=== PATIENT | female | born 1950 | race Caucasian/White ===

== ENCOUNTER 2016-05-07 09:02 | Observation (INO) ==
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
[2016-05-07 10:26] LABS: Basophils % 0.6 %; Eosinophils # 0.1 K/mcL (0.0-0.6); Eosinophils % 0.9 %; Hematocrit 38.7 % (35.3-44.9); Hemoglobin 13.1 g/dL (11.5-15.4); Immature Granulocytes % 0.3 % (0-4); Lymphocytes # 2.4 K/mcL (0.6-4.6); Lymphocytes % 37.1 %; Mean Corpuscular HGB Conc 33.9 g/dL (31.6-35.5); Mean Corpuscular Hemoglobin 30.1 pg (28.0-33.3); Mean Platelet Volume 10.1 fL (9.4-12.4); Monocytes # 1.1 K/mcL (0.0-1.3); Monocytes % 16.7 %; Neutrophils # 2.8 K/mcL (1.6-8.9); Platelet Count 426 K/mcL (140-400); Red Blood Count 4.35 M/mcL (3.82-4.97); Red Cell Distribution Width 18.4 % (11.5-14.5); Segmented Neutrophils % 44.4 %
[2016-05-07 10:35] LABS: INR 1.2; Prothrombin Time 12.8 Seconds (9.4-12.1)
[2016-05-07 10:55] LABS: Bilirubin,Urine Large (Negative); Blood,Urine Small (Negative); Clarity,Urine Clear (Clear); Color,Urine Yellow (Yellow); Glucose,Urine (UA) Normal (Normal); Ketones,Urine 40 mg/dL (Negative); Leukocyte Esterase,Urine Small (Negative); Nitrite,Urine Negative (Negative); PH,Urine 5.5 pH Units (5.0-8.0); Protein,Urine >=300 mg/dL (Neg-Trace); Specific Gravity,Urine >= 1.030 (1.010-1.025); Urobilinogen,Urine Normal (Normal)
[2016-05-07 10:58] LABS: BUN/Creatinine Ratio 21 (6-26); Blood Urea Nitrogen 22 mg/dL (7-20); Calcium 10.2 mg/dL (8.6-10.8); Carbon Dioxide 18 mEq/L (19-29); Chloride 101 mEq/L (98-109); Glucose 127 mg/dL (70-99); Osmolality,Calculated 293 (280-300); Potassium 3.9 mEq/L (3.5-4.5); Sodium 139 mEq/L (136-145); eGFR For African Americans > 60 (> 60); eGFR For Non-African Americans 52 (> 60)
[2016-05-07 11:00] LABS: Bacteria,Urine Many per hpf (None-Few); Hyaline Casts,Urine Few per lpf (None-Few); Mucus,Urine Few (Few); Squamous Epithelial Cell,Urine Few per lpf (None-Few); WBC,Urine 15-30 per hpf (0-3)
[2016-05-07] MEDS ORDERED: MetroNIDAZOLE 500 MG/100 ML 500 MG/100 ML BAG IVPB ONE ×2 (11:51→12:30)
[2016-05-07] MEDS ORDERED: CefTRIAXone 1,000 MG in D5% in Water (Mini-Bag+) 100 ML IVPB ONE ×2 (11:51→12:30)
[2016-05-07] MEDS ORDERED: 0.9 % Sodium Chloride 1,000 ML IVC SCH ×2 (12:00→12:30)
[2016-05-07] MEDS ORDERED: *HR* HYDROcodone/Acet 5/325 mg TABLET PO PRN (12:30)
[2016-05-07] MEDS ORDERED: GuaiFENesin Liq 200 MG/10 ML UDC PO PRN (12:30)
[2016-05-07] MEDS ORDERED: *HR* Dextrose 50 % in Water (Syg) 50 ML SYRINGE IVP PRN (12:30)
[2016-05-07] MEDS ORDERED: Naloxone 0.4 MG/ML INJ IVP PRN (12:30)
[2016-05-07] MEDS ORDERED: D5% in Water 1,000 ML IV PRN (12:30)
[2016-05-07] MEDS ORDERED: Dextrose Gel 15 GM PO PRN ×2 (12:30)
[2016-05-07] MEDS ORDERED: Ondansetron ODT 4 MG TAB.RAPDIS SL PRN (12:30)
[2016-05-07] MEDS ORDERED: ClonazePAM 0.5 MG TABLET PO STA (15:21)
[2016-05-07 17:12] LABS: Hemoglobin A1C 6.8 %
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
[2016-05-07] MEDS ORDERED: *HR* Digoxin 0.5 MG/2 ML AMPUL IVP ONE (18:01)
[2016-05-07] MEDS ORDERED: *HR* Propranolol 1 MG/ML VIAL IVP ONE ×2 (18:01→18:33)
[2016-05-07] MEDS: Topiramate 100 MG TABLET PO SCH (20:39)
[2016-05-07] MEDS: BuPROPion XL (24 HR) 150 MG TABLET PO SCH (20:39)
[2016-05-07] MEDS: ClonazePAM 0.5 MG TABLET PO SCH (20:39)
[2016-05-07] MEDS: *HR* Rivaroxaban 15 MG TABLET PO SCH (20:39)
[2016-05-07] MEDS: Doxycycline 100 MG CAPSULE PO SCH (20:39)
[2016-05-07] MEDS: 0.45 % Sodium Chloride w/KCl 20 MEQ/1,000 ML MLS IVC SCH (20:40)
[2016-05-07] MEDS: Insulin DETEMIR 100 UNIT/ML X5UNITS SQ SCH (20:45)
[2016-05-07] MEDS: Nystatin POWDER 30 GM BOTTLE TP SCH (22:34)
[2016-05-07] MEDS: Insulin LISPRO 300 UNITS/3 ML VIAL SQ SCH (23:12)
[2016-05-08] MEDS: Nystatin POWDER 30 GM BOTTLE TP SCH ×3 (00:13→17:10)
[2016-05-08] MEDS: 0.45 % Sodium Chloride w/KCl 20 MEQ/1,000 ML MLS IVC SCH (06:39)
[2016-05-08 09:11] LABS: Basophils # 0.1 K/mcL (0.0-0.2); Basophils % 0.9 %; Eosinophils # 0.2 K/mcL (0.0-0.6); Eosinophils % 4.4 %; Hematocrit 36.2 % (35.3-44.9); Hemoglobin 12.4 g/dL (11.5-15.4); Immature Granulocytes % 0.4 % (0-4); Mean Corpuscular HGB Conc 34.3 g/dL (31.6-35.5); Mean Corpuscular Hemoglobin 30.3 pg (28.0-33.3); Mean Corpuscular Volume 88.5 fL (83.0-100.0); Mean Platelet Volume 10.2 fL (9.4-12.4); Neutrophils # 2.1 K/mcL (1.6-8.9); Platelet Count 397 K/mcL (140-400); Red Blood Count 4.09 M/mcL (3.82-4.97); Red Cell Distribution Width 18.3 % (11.5-14.5); Segmented Neutrophils % 39.3 %
[2016-05-08] MEDS: Insulin LISPRO 300 UNITS/3 ML VIAL SQ SCH ×3 (09:51→17:10)
[2016-05-08] MEDS: Aspirin Enteric Coated 81 MG Tablet PO SCH (09:53)
[2016-05-08] MEDS: CefTRIAXone 1,000 MG in D5% in Water (Mini-Bag+) 100 ML IVPB SCH (09:53)
[2016-05-08] MEDS: Lisinopril 20 MG TABLET PO SCH (09:53)
[2016-05-08] MEDS: ClonazePAM 0.5 MG TABLET PO SCH (09:53)
[2016-05-08] MEDS: Doxycycline 100 MG CAPSULE PO SCH (09:53)
[2016-05-08 11:20] LABS: INR 1.4; Prothrombin Time 14.7 Seconds (9.4-12.1)
[2016-05-08 11:24] LABS: BUN/Creatinine Ratio 24 (6-26); Blood Urea Nitrogen 21 mg/dL (7-20); Calcium 9.3 mg/dL (8.6-10.8); Carbon Dioxide 22 mEq/L (19-29); Chloride 103 mEq/L (98-109); Glucose 136 mg/dL (70-99); Osmolality,Calculated 289 (280-300); Potassium 3.9 mEq/L (3.5-4.5); Sodium 137 mEq/L (136-145); eGFR For African Americans > 60 (> 60); eGFR For Non-African Americans > 60 (> 60)
--- NOTE | 2016-05-08 12:27 | Internal Med Progress Note ---
Date of Encounter: 05/08/16 Time of Encounter: 12:20 - Assessment and plan (1) Cellulitis Current Visit: Yes Status: Acute Assessment and plan: May 08. Continue doxycycline. Qualifiers: Site of cellulitis of extremity: lower extremity Laterality: left Qualified Code(s): L03.116 - Cellulitis of left lower limb (2) Atrial fibrillation Current Visit: Yes Status: Acute Assessment and plan: May 08. Now in NSR. Continue Lanoxin and Xarelto. Will add Toprol to help maintain NSR and improved blood pressure. Qualifiers: Atrial fibrillation type: unspecified Qualified Code(s): I48.91 - Unspecified atrial fibrillation (3) CKD (chronic kidney disease) stage 3, GFR 30-59 ml/min Current Visit: Yes Status: Chronic Assessment and plan: May 08. Her creatinine is decreased to 0.88 with estimated GFR now greater than 60. Continue present regimen. (4) Bipolar disorder Current Visit: Yes Status: Chronic Assessment and plan: May 08. Continue present antipsychotic medications. Consider referral to inpatient psychiatric unit. Qualifiers: Active/Remission status: remission status unspecified Qualified Code(s): F31.9 - Bipolar disorder, unspecified (5) Anxiety Current Visit: Yes Status: Chronic Assessment and plan: May 08. Continue present medications (6) Hypertension Current Visit: Yes Status: Chronic Assessment and plan: May 08. We will add Toprol and continue Zestril. She will remain off HCTZ. Qualifiers: Hypertension type: essential hypertension Qualified Code(s): I10 - Essential (primary) hypertension (7) DM type 2 (diabetes mellitus, type 2) Current Visit: Yes Status: Chronic Assessment and plan: May 08. Hemoglobin A1c was 6.8% on 05/07/2016. Continue Levemir and Accu- Cheks with SSI Qualifiers: Diabetes mellitus complication status: with kidney complications Diabetes mellitus complication detail: with chronic kidney disease Diabetes mellitus correction insulin use: with intermodal dispatcher use Chronic kidney disease stage: stage 3 (moderate) Qualified Code(s): E11.22 - Type 2 diabetes mellitus with diabetic chronic kidney disease; N18.3 - Chronic kidney disease, stage 3 ( moderate); Z79.4 - bed bug exterminator (current) use of insulin (8) Hypothyroidism Current Visit: Yes Status: Chronic Assessment and plan: May 08. TSH was normal at 1.407 on 05/07/2016. Continue Synthroid Qualifiers: Hypothyroidism type: unspecified Qualified Code(s): E03.9 - Hypothyroidism , unspecified (9) UTI (urinary tract infection) Current Visit: Yes Status: Acute Assessment and plan: May 08. Continue Rocephin and await urine culture report Qualifiers: Urinary tract infection type: acute cystitis Hematuria presence: with hematuria Qualified Code(s): N30.01 - Acute cystitis with hematuria - Subjective Interval history: May 08. She has no new complaints. She is rambling in conversation. - Constitutional Vitals: Temp Pulse Resp BP Pulse Ox 97.7 F 87 18 155/90 96 05/08/16 11:00 05/08/16 11:00 05/08/16 11:00 05/08/16 06:16 05/08/16 11:00 Exam: She appears in no acute distress. She has trace edema of her lower legs. There is decreased erythema of the left lower leg and left toes. Her heart is now regular sinus rhythm at rate approximately 98/m. She has tangential thoughts and is rambling in conversation. I reviewed her medications and lab results. Internal Medicine: Result - Labs CBC & Chem 7: 05/08/16 08:44 05/08/16 08:44 Labs: Short CBC 05/08/16 Range/Units 08:44 WBC 5.4 (4.3-11.1) K/mcL Hgb 12.4 (11.5-15.4) g/dL Hct 36.2 (35.3-44.9) % Plt Count 397 (140-400) K/mcL Neutrophils # 2.1 (1.6-8.9) K/mcL BMP 05/08/16 08:44 Sodium 137 Potassium 3.9 Chloride 103 Carbon Dioxide 22 BUN 21 H Creatinine 0.88 Glucose 136 H Calcium 9.3 - ABG Interpretation ABG results: PT/INR, D-dimer PT 14.7 Seconds (9.4-12.1) H 05/08/16 08:44 Consult Discharge Plan - Plan Referrals: Trey Camilo [Primary Care Provider] - 1 week
[2016-05-08] MEDS: Metoprolol XL (24 HR) Succ 50 MG TAB.ER.24H PO SCH (14:50)
--- NOTE | 2016-05-08 15:04 | Electrocardiograph Report ---
[facility] Test Date: 2016-05-07 Pat Name: Pooja Patrick Department: [id number] Room: [id number] Gender: F Ceramics Teacher: Santana : 1950 Requested By: Dexter Do Order Number: [id number] Mely MD: Randall Frank DO Measurements Intervals [place] Rate: 171 P: [place]: 0 QRS: 50 QRSD: 90 T: -81 QT: 264 QTc: 356 Interpretive Statements Probable atrial fibrillation with RVR Anterolateal and inferor ST-T changes due to rate and/or ischemia Electronically Signed On 05-08-16 14:03:53 EST by Randall Frank DO
[2016-05-08] MEDS: *HR* Rivaroxaban 15 MG TABLET PO SCH (17:00)
[2016-05-09] MEDS: Doxycycline 100 MG CAPSULE PO SCH ×3 (01:25→20:30)
[2016-05-09] MEDS: Nystatin POWDER 30 GM BOTTLE TP SCH ×4 (01:26→21:15)
[2016-05-09] MEDS: ClonazePAM 0.5 MG TABLET PO SCH ×3 (01:26→20:30)
[2016-05-09] MEDS: Insulin DETEMIR 100 UNIT/ML X5UNITS SQ SCH ×2 (01:26→20:29)
[2016-05-09] MEDS: BuPROPion XL (24 HR) 150 MG TABLET PO SCH ×2 (01:27→20:30)
[2016-05-09] MEDS: Topiramate 100 MG TABLET PO SCH ×2 (01:27→20:30)
[2016-05-09] MEDS: Insulin LISPRO 300 UNITS/3 ML VIAL SQ SCH ×2 (09:34→17:34)
[2016-05-09] MEDS: Lisinopril 20 MG TABLET PO SCH (09:36)
[2016-05-09] MEDS: Metoprolol XL (24 HR) Succ 50 MG TAB.ER.24H PO SCH (09:36)
[2016-05-09] MEDS: CefTRIAXone 1,000 MG in D5% in Water (Mini-Bag+) 100 ML IVPB SCH (09:37)
[2016-05-09] MEDS: Aspirin Enteric Coated 81 MG Tablet PO SCH (09:37)
--- NOTE | 2016-05-09 17:25 | Internal Med Progress Note ---
Date of Encounter: 05/09/16 Time of Encounter: 17:15 - Assessment and plan (1) Cellulitis Current Visit: Yes Status: Acute Assessment and plan: May 08. Continue doxycycline. Qualifiers: Site of cellulitis of extremity: lower extremity Laterality: left Qualified Code(s): L03.116 - Cellulitis of left lower limb (2) Atrial fibrillation Current Visit: Yes Status: Acute Assessment and plan: May 08. Now in NSR. Continue Lanoxin and Xarelto. Will add Toprol to help maintain NSR and improved blood pressure. May 09. Continue Toprol and Xarelto Qualifiers: Atrial fibrillation type: unspecified Qualified Code(s): I48.91 - Unspecified atrial fibrillation (3) CKD (chronic kidney disease) stage 3, GFR 30-59 ml/min Current Visit: Yes Status: Chronic Assessment and plan: May 08. Her creatinine is decreased to 0.88 with estimated GFR now greater than 60. Continue present regimen. May 09. Will recheck labs in a.m. (4) Bipolar disorder Current Visit: Yes Status: Chronic Assessment and plan: May 08. Continue present antipsychotic medications. Consider referral to inpatient psychiatric unit. May 09. She will be accepted at [facility] tomorrow if she remains stable overnight Qualifiers: Active/Remission status: remission status unspecified Qualified Code(s): F31.9 - Bipolar disorder, unspecified (5) Anxiety Current Visit: Yes Status: Chronic Assessment and plan: May 08. Continue present medications (6) Hypertension Current Visit: Yes Status: Chronic Assessment and plan: May 08. We will add Toprol and continue Zestril. She will remain off HCTZ. May 09. Continue Toprol and lisinopril. Qualifiers: Hypertension type: essential hypertension Qualified Code(s): I10 - Essential (primary) hypertension (7) DM type 2 (diabetes mellitus, type 2) Current Visit: Yes Status: Chronic Assessment and plan: May 08. Hemoglobin A1c was 6.8% on 05/07/2016. Continue Levemir and Accu- Cheks with SSI May 09. Blood sugars are well controlled. 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 TSH was normal at 1.407 on 05/07/2016. Continue Synthroid Qualifiers: Hypothyroidism type: unspecified Qualified Code(s): E03.9 - Hypothyroidism , unspecified (9) UTI (urinary tract infection) Current Visit: Yes Status: Acute Assessment and plan: May 08. Continue Rocephin and await urine culture report May 09. Urine culture showed Escherichia coli. We will discontinue antibiotics after tomorrow's dose of Rocephin since she will have had 3 doses. Qualifiers: Urinary tract infection type: acute cystitis Hematuria presence: with hematuria Qualified Code(s): N30.01 - Acute cystitis with hematuria - Subjective Interval history: May 08. She has no new complaints. She is rambling in conversation. May 09. She states she has "pain all over". She states she also needs something for her "nerves". This claim was reviewed by [employer], a member of the Utilization Review committee ,has determined and I have agreed that status is to be changed to observation using condition Code 44. - Constitutional Vitals: Temp Pulse Resp BP Pulse Ox 98.2 F 84 16 124/56 98 05/09/16 14:13 05/09/16 14:13 05/09/16 14:13 05/09/16 14:13 05/09/16 14:13 Exam: She is resting comfortably in a chair eating supper. Her left leg shows less erythema. There is 1+ edema in the lower anterior velasquez. The right leg shows trace edema of the anterior velasquez.. I reviewed her medications and lab results. Internal Medicine: Result - Labs CBC & Chem 7: 05/08/16 08:44 05/08/16 08:44 - ABG Interpretation ABG results: PT/INR, D-dimer PT 14.7 Seconds (9.4-12.1) H 05/08/16 08:44 - Impressions Impressions Head CT 05/09/16 12:43 IMPRESSION: No acute intracranial abnormality. Right mastoiditis. D/ / Onel Phillips MD / Onel Phillips MD Interpreting Provider: Onel Phillips MD Consult Discharge Plan - Plan Referrals: Trey Camilo [Primary Care Provider] - 1 week
[2016-05-09] MEDS: *HR* Rivaroxaban 15 MG TABLET PO SCH (17:48)
[2016-05-10 07:09] LABS: Basophils % 0.7 %; Eosinophils # 0.3 K/mcL (0.0-0.6); Eosinophils % 4.3 %; Hematocrit 37.2 % (35.3-44.9); Hemoglobin 12.5 g/dL (11.5-15.4); Immature Granulocytes % 0.5 % (0-4); Lymphocytes # 2.4 K/mcL (0.6-4.6); Mean Corpuscular HGB Conc 33.6 g/dL (31.6-35.5); Mean Corpuscular Hemoglobin 30.3 pg (28.0-33.3); Mean Corpuscular Volume 90.3 fL (83.0-100.0); Mean Platelet Volume 10.2 fL (9.4-12.4); Monocytes # 1.3 K/mcL (0.0-1.3); Monocytes % 22.8 %; Neutrophils # 1.8 K/mcL (1.6-8.9); Platelet Count 365 K/mcL (140-400); Red Blood Count 4.12 M/mcL (3.82-4.97); Red Cell Distribution Width 19.1 % (11.5-14.5); Segmented Neutrophils % 30.7 %
[2016-05-10 07:27] LABS: Alanine Aminotransferase 20 Units/L (0-55); Albumin 2.4 g/dL (3.5-5.0); Albumin/Globulin Ratio 0.8 (1.1-2.2); Alkaline Phosphatase 74 Units/L (38-126); Aspartate Amino Transferase 27 Units/L (5-34); BUN/Creatinine Ratio 19 (6-26); Bilirubin,Total 0.3 mg/dL (0.2-1.2); Blood Urea Nitrogen 15 mg/dL (7-20); Calcium 9.3 mg/dL (8.6-10.8); Carbon Dioxide 20 mEq/L (19-29); Chloride 107 mEq/L (98-109); Globulin 3.1 g/dL (2.4-3.5); Glucose 165 mg/dL (70-99); Osmolality,Calculated 291 (280-300); Potassium 3.7 mEq/L (3.5-4.5); Sodium 138 mEq/L (136-145); Total Protein 5.5 g/dL (6.0-8.3); eGFR For African Americans > 60 (> 60); eGFR For Non-African Americans > 60 (> 60)
[2016-05-10 08:37] LABS: Anisocytosis 1+ (Not Present); Ovalocytes 1+ (Not Present); Target Cells 1+ (Not Present); Tear Drop Cells 1+ (Not Present)
[2016-05-10 08:38] LABS: Platelet Estimate Normal (Normal)
[2016-05-10] MEDS: Insulin LISPRO 300 UNITS/3 ML VIAL SQ SCH ×2 (09:58→13:37)
[2016-05-10] MEDS: Metoprolol XL (24 HR) Succ 50 MG TAB.ER.24H PO SCH (09:59)
[2016-05-10] MEDS: Doxycycline 100 MG CAPSULE PO SCH (10:00)
[2016-05-10] MEDS: Lisinopril 20 MG TABLET PO SCH (10:00)
[2016-05-10] MEDS: Nystatin POWDER 30 GM BOTTLE TP SCH (10:00)
[2016-05-10] MEDS: ClonazePAM 0.5 MG TABLET PO SCH (10:01)
[2016-05-10] MEDS: Aspirin Enteric Coated 81 MG Tablet PO SCH (10:01)
[2016-05-10] MEDS: CefTRIAXone 1,000 MG in D5% in Water (Mini-Bag+) 100 ML IVPB SCH (10:01)
[2016-05-10 10:26] VITALS: BP 132/67
--- NOTE | 2016-05-10 12:43 | Discharge Summary ---
Date of Encounter: 05/10/16 Time of Encounter: 12:30 - Discharge Diagnosis (1) Cellulitis Priority: Primary Status: Acute Qualifiers: Site of cellulitis of extremity: lower extremity Laterality: left Qualified Code(s): L03.116 - Cellulitis of left lower limb (2) Atrial fibrillation Priority: Secondary Status: Resolved Qualifiers: Atrial fibrillation type: unspecified Qualified Code(s): I48.91 - Unspecified atrial fibrillation (3) CKD (chronic kidney disease) stage 3, GFR 30-59 ml/min Priority: Secondary Status: Resolved (4) Bipolar disorder Priority: Secondary Status: Chronic Qualifiers: Active/Remission status: remission status unspecified Qualified Code(s): F31.9 - Bipolar disorder, unspecified (5) Anxiety Priority: Secondary Status: Chronic (6) Hypertension Priority: Secondary Status: Chronic Qualifiers: Hypertension type: essential hypertension Qualified Code(s): I10 - Essential (primary) hypertension (7) DM type 2 (diabetes mellitus, type 2) Priority: Secondary Status: Chronic Qualifiers: Diabetes mellitus complication status: with kidney complications Diabetes mellitus complication detail: with chronic kidney disease 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 Chronic kidney disease stage: stage 3 (moderate) Qualified Code(s): E11.22 - Type 2 diabetes mellitus with diabetic chronic kidney disease; N18.3 - Chronic kidney disease, stage 3 ( moderate); Z79.4 - jail (current) use of insulin (8) Hypothyroidism Priority: Secondary Status: Chronic Qualifiers: Hypothyroidism type: unspecified Qualified Code(s): E03.9 - Hypothyroidism , unspecified (9) UTI (urinary tract infection) Priority: Secondary Status: Resolved Qualifiers: Urinary tract infection type: acute cystitis Hematuria presence: with hematuria Qualified Code(s): N30.01 - Acute cystitis with hematuria - Discharge Medications Prescriptions: Bumetanide [Bumex] 0.5 mg PO DAILY #30 tablet Doxycycline 100 mg PO BID #6 capsule Metoprolol XL (24 HR) Succ [Toprol Xl] 50 mg PO DAILY #30 tab.er.24h Home Medications: Albuterol Sulfate [Ventolin Hfa] 2 puff IH Q6H 01/28/15 [History] Aspirin Enteric Coated [Aspirin EC] 81 mg PO DAILY 01/28/15 [History] BuPROPion XL (24 HR) [Wellbutrin Xl] 300 mg PO HS 01/28/15 [History] ClonazePAM [Klonopin] 0.5 mg PO BID 01/28/15 [History] Hydrocodone/Acetaminophen [[place] 5-325 Tablet] 1 tab PO Q6H PRN 01/28/15 [ History] Insulin ASPART [NovoLOG] 2 - 10 unit SQ TIDWM 01/28/15 [History] Insulin Glargine,Hum.rec.anlog [Lantus Solostar] 70 unit SQ HS 01/28/15 [History ] Levothyroxine [Synthroid] 75 mcg PO QAM 01/28/15 [History] Lisinopril [Zestril] 20 mg PO DAILY 01/28/15 [History] OxyCODONE/APAP 5/325 [Percocet 5/325] 1 each PO Q4HR #40 tablet 01/28/15 [Rx] Quetiapine Fumarate [Seroquel] 400 mg PO HS 01/28/15 [History] Topiramate [Topamax] 100 mg PO HS 01/28/15 [History] Bumetanide [Bumex] 0.5 mg PO DAILY #30 tablet 05/10/16 [Rx] Doxycycline 100 mg PO BID #6 capsule 05/10/16 [Rx] Metoprolol XL (24 HR) Succ [Toprol Xl] 50 mg PO DAILY #30 tab.er.24h 05/10/16 [ Rx] Allergies/Adverse Reactions: Allergies butorphanol Allergy (Verified 01/14/15 11:27) Hives naproxen Allergy (Verified 01/14/15 11:27) Hives quinine Allergy (Verified 01/14/15 11:27) Hives Sulfa (Sulfonamide Antibiotics) Allergy (Verified 01/14/15 11:27) See Comments hives sulfamethoxazole [From Bactrim] Allergy (Verified 01/14/15 11:27) Hives tramadol Allergy (Verified 01/14/15 11:27) Hives trimethoprim Allergy (Verified 01/14/15 11:27) Hives Procedures/tests Complete & Pending: Procedures Performed prior 72 hours Category Date Time Status Head CT without Contrast [CT head/brain wo con] [CT] Cat Scan 05/09/16 12:43 Completed Routine ECG 12 lead ECG [ECG] Routine Y 05/07/16 17:54 Completed Date of admission: 05/07/16 12:15 Primary care physician: Trey Camilo Consults: 05/07/16 20:36 Consult to Nutrition [CONS] Routine Comment: Consulting Provider: NUTRITION Reason for Dietary Consult: MST Score Consult to Pen And Pencil Repairer [CONS] Routine Reason for SW Consult: Issues with living home. - Patient Status Disposition: Transfer Psychiatric Hosp Condition: Fair Overall status at discharge: patient is progressing back to baseline - Discharge Instructions - Diet and Activity Activity: resume usual activities as tolerated Diet: advance to your usual diet, low salt diet Hospital course: Ms. Patrick is a 66 year old female who is a challenging historian because of rambling conversation. She reports she was on the floor in her home for 5 hours last night after sliding out of her chair and unable to get back to her feet. She was brought to emergency room but refused to be seen initially. She remained in a wheelchair in the hospital lobby area for an unknown period of time. She was found [facility] staff sitting in the wheelchair in a hospital gown. She was brought to [facility] floor briefly but was eventually taken back to emergency room. She was evaluated and felt to have UTI. She was noted to have azotemia present. She was admitted to [facility] for ongoing care needs. Initial orders were written by the emergency room physician. I saw her on May 07 and performed history and physical. She was started on doxycycline for her cellulitis. There was significant improvement by the time of discharge. She will continue this for 3 additional days. She was started on Xarelto and given Lanoxin and Inderal for atrial fibrillation , duration unknown. She converted to normal sinus rhythm within 24 hours remained in NSR during the remainder of her hospital stay. She will be maintained on metoprolol XL 50 mg daily at discharge. Indications were adjusted with discontinuation of her Zestril and diuretics. She had resolution of her azotemia with BUN/creatinine being 15 0.78 respectively on May 10 with estimated GFR greater than 60. She will be given low-dose Bumex at discharge because of slight worsening of edema. She had Escherichia coli on urine culture. She was treated with Rocephin during her hospital stay. She will not need further antibiotics treatment for this after discharge. Social service consult was made. It was felt patient would benefit from inpatient psychiatric treatment and she was accepted [facility] on May 10. - Time Spent with Patient Total time spent providing and/or coordinating discharge services: - Constitutional Vitals: Temp Pulse Resp BP Pulse Ox 97.8 F 73 16 132/67 100 05/10/16 10:24 05/10/16 10:24 05/10/16 10:24 05/10/16 10:24 05/10/16 10:24
== END 2016-05-10 14:42 ==
LOC: EMEROOPIK 09:02 → INPPIK 09:02
PROVIDERS: ADMIT Internal Medicine; ATTEND Internal Medicine